=== PATIENT | female | born 1990 | race Caucasian/White ===

== ENCOUNTER → 2018-03-04 12:00 | Outpatient (CLI) | payer OTHER, MEDICAID, SELFPAY ==
--- NOTE | 2018-03-04 | DI.US.S_ITS ---
PROCEDURE: US OB >= 14 WEEKS FETUS INDICATIONS: 20 WEEK ANATOMICAL SURVEY OUTSIDE/PRIOR DATING DATA: Last menstrual period (LMP): 09/21/17. LMP-based estimated date of delivery (BRIJESH): 06/28/18. First dating scan (date and location): 03/04/itching. Estimated date of delivery (BRIJESH) from first dating scan: 07/04/18. TECHNIQUE: Real-time scanning was performed of the fetus, with image documentation and biometric measurements. Endovaginal scanning: No COMPARISON: None. FINDINGS: General: A single living intrauterine gestation is present. Presentation: Vertex. Placenta: Placental position is posterior fundal, without previa. Amniotic fluid index: 12.1 cm, normal range is 5-24 cm. heart rate: 145 beats per minute. Maternal cervical canal: 3.1 cm long. Normal lower limit is 2.5 cm. biometrics: Biparietal diameter: 22 weeks 3 days Head circumference: 22 weeks 3 days Abdominal circumference: 22 weeks 4 days Femur length: 22 weeks 4 days Estimated gestational age from initial scan: not applicable. Composite gestational age from present scan: 22 weeks 4 days Estimated weight and percentile: 510 g Measurement variability for biometric dating: +/- 7 days from 14 weeks to 15 weeks 6 days gestation, +/- 10 days from 16 weeks to 21 weeks 6 days gestation, +/- 2 weeks from 22 weeks to 27 weeks 6 days gestation, +/- 3 weeks for 28 weeks gestation or later. weight reference: 4500 g or EFW >90/95% is considered macrosomia or large for gestational age. EFW <10% is small for gestational age. EFW 5% or less is considered intra-uterine growth restriction. Anatomic survey: Neuro: Ventricles are non-dilated at less than 10 mm. Cisterna magna is normal at 3-11 mm. Cerebellum is normal in size and morphology. Nuchal skin fold: Normal at less than 6 mm between 14-21 weeks gestational age. Face: Nose and lips, facial profile are normal. Spine: No evidence for spina bifida. Heart: 4-chambered heart is present, with normal ventricular outflow tracts. Diaphragm: Diaphragm is intact. Stomach: Left-sided stomach is present. Kidneys: No hydronephrosis. Normal is less than 5 mm in 2nd trimester, less than 7 mm in 3rd trimester. Cord: 3-vessel cord has orthotopic insertion. Bladder: Normal in size. Extremities: All 4 extremities identified. IMPRESSION: 1. Single living IUP present with composite gestational age of 22 weeks 4 days. 2. Normal anatomy. Dictated by: Zachariah RAM Interpreted: Derek Arcos MD on 03/04/2018 at 13:39 Approved by: Derek Arcos M.D. on 03/04/2018 at 14:34
== END ==
PROVIDERS: Visit Provider Midwife
DX: Z36.89 Encounter for other specified antenatal screening (principal); Z3A.22 22 weeks gestation of pregnancy
CPT/HCPCS: 76811

== ENCOUNTER → 2018-07-08 10:41 | Outpatient (CLI) | payer OTHER, MEDICAID, SELFPAY ==
--- NOTE | 2018-07-08 | DI.US.S_ITS ---
PROCEDURE: US OB BIOPHYSICAL PROFILE INDICATIONS: INDU OUTSIDE/PRIOR DATING DATA: Last menstrual period (LMP): 09/21/2017. LMP-based estimated date of delivery (BRIJESH): 06/28/2018. First dating scan (date and location): 03/04/2018, [facility]. Estimated date of delivery (BRIJESH) from first dating scan: 07/04/2018. TECHNIQUE: Real-time scanning was performed of the fetus, with image documentation and biometric measurements. Biophysical profile was also obtained. Endovaginal scanning: No COMPARISON: [facility], OB >= 14 WEEKS FETUS, 03/04/2018, 12:38. None. FINDINGS: General: A single living intrauterine gestation is present. Presentation: Vertex. Placenta: Placental position is left frontal, without previa. Amniotic fluid index: 6.7 cm, normal range is 5-24 cm. heart rate: 127 beats per minute. Maternal cervical canal: Not visualized biometrics: Estimated gestational age from initial scan: 40 weeks 4 days. Composite gestational age from present scan: n.a. Estimated weight and percentile: n.a. Measurement variability for biometric dating: +/- 7 days from 14 weeks to 15 weeks 6 days gestation, +/- 10 days from 16 weeks to 21 weeks 6 days gestation, +/- 2 weeks from 22 weeks to 27 weeks 6 days gestation, +/- 3 weeks for 28 weeks gestation or later. weight reference: 4500 g or EFW >90/95% is considered macrosomia or large for gestational age. EFW <10% is small for gestational age. EFW 5% or less is considered intra-uterine growth restriction. Biophysical profile: Tone: 2 points. Movement: 2 points. Respiration: 2 points. Largest pocket of fluid: 2 points. IMPRESSION: 1. A single living intrauterine gestation with an estimated gestational age of 40 weeks 4 days based on the earlier ultrasound. 2. Normal biophysical profile (8 out of 8). 3. INDU 6.7 cm. Dictated by: Hafsa Bellamy M.D. on 07/08/2018 at 15:11 Approved by: Hafsa Bellamy M.D. on 07/08/2018 at 15:42
== END ==
PROVIDERS: PCP Midwife; Visit Provider Midwife
DX: Z03.71 Encounter for suspected problem with amniotic cavity and membrane ruled out (principal); Z3A.40 40 weeks gestation of pregnancy
CPT/HCPCS: 76819

== ENCOUNTER 2018-07-13 05:47 | Inpatient (IN) | payer OTHER, MEDICAID, SELFPAY ==
[2018-07-13] MEDS: LACTATED RINGERS 1,000 ML 100 ML IV ×2 (06:35→12:33)
[2018-07-13] MEDS: PENICILLIN G POTASSIUM 5,000,000 UNIT in DEXTROSE 5% IN WATER 250 ML IV (06:50)
[2018-07-13 07:06] LABS: Add Manual Diff / Slide Review NO; Basophils Absolute Auto 0 /uL (0-100); Basophils Percent Auto 0.1 % (0-2); Eosinophils Absolute Auto 0 /uL (0-450); Eosinophils Percent Auto 0.3 % (2-4); Hematocrit 35.8 % (36-46); Hemoglobin 12.4 g/dL (12.0-16.0); Lymphocytes Absolute Auto 1500 /uL (1100-4500); Mean Corpuscular HGB Conc 34.5 % (30-36); Mean Corpuscular Hemoglobin 30.2 PG (26-34); Mean Corpuscular Volume 87.4 fL (80-100); Monocytes Absolute Auto 600 /uL (0-900); Monocytes Percent Auto 4.5 % (3-14); Neutrophils Absolute Auto 11500 /uL (1500-7000); Neutrophils Percent Auto 84.1 % (50-75); Platelet Count 177 X10^3/uL (150-400); Red Cell Distribution Width 14.3 % (11.6-14.8); White Blood Cell Count 13.7 X10^3/uL (4.5-11.0)
[2018-07-13] MEDS: fentaNYL 100 MCG/2 ML INJ 50 MCG IV ×2 (08:10→09:43)
[2018-07-13 08:58] VITALS: BP 132/77
[2018-07-13] MEDS: PENICILLIN G POTASSIUM 3,000,000 UNIT/50 ML FROZ.PIGGY 100 UNIT IV ×2 (11:00→15:06)
[2018-07-13] MEDS: OXYTOCIN PREMIX 30 UNIT/500 ML PLAST..BAG IV (15:41)
[2018-07-14] MEDS: IBUPROFEN 600 MG TABLET PO ×3 (03:10→16:43)
[2018-07-14 06:29] LABS: Hematocrit 31.6 % (36-46); Hemoglobin 11.1 g/dL (12.0-16.0)
[2018-07-14] MEDS: TET,DIPH,PERTUSS(ACELL),VAC/PF 0.5 ML SYRINGE IM (09:57)
[2018-07-14 15:26] VITALS: BP 110/63; PULSE 80; RESP 16; TEMP 36.6
[2018-07-14 15:28] VITALS: BP 110/63; PULSE 80; RESP 16; TEMP 36.6
--- NOTE | 2018-07-14 18:39 | PM.OBHP.1 ---
OB HPI Date/Time Date of admission: 07/13/18 Date Patient Seen: 07/13/18 Time Patient Seen: 07:45 History of Present Condition Chief complaint: labor & delivery : 4 Para: 1 Estimated Date of Delivery: 07/04/18 Estimated Gestational Age (weeks): 41+2 Narrative: Terri Welch is a 28 year old female 4 para 1 at 41-,2/7 weeks gestation who was planning a home . She had a prolonged early stage of labor and requested transfer to the hospital. No leakage of fluid. Good movement. Contractions approximately 5 min apart. Indications Indication for induction OB: post dates Other reason(s) for admission: Prolonged early stage of labor Contractions since 1800 yesterday without cervical change. History of Present care: good care, initiated at week # (13) and number of visits (12) Dating criteria: LMP confirmed by 2nd trimester US Ultrasounds: normal mid trimester US Obstetrical complications: none Medical complications: none Preadmission Labs Blood type: B (+) positive -: Antibody screen: negative, GBS status: positive and RPR/VDLR: negative -: Chlamydia screen: not detected and Gonorrhea screen: not detected -: Rubella: immune HCT: 35.5 1 hr GTT: 74 Evaluation Evaluation Baseline heart rate: 125 Variability: Moderate (11-25) monitor accelerations: Present monitor decelerations: Absent Contraction Frequency (minutes): 3 Uterine Contraction Intensity: Moderate Category of Tracing: I Cervical dilation (cm): 2 Cervical effacement (%): 80 station: -1 Laboratory results: Laboratory Tests 07/13/18 07/13/18 07/14/18 06:35 06:35 06:17 WBC 13.7 H RBC 4.10 Hgb 12.4 11.1 L Hct 35.8 L 31.6 L MCV 87.4 MCH 30.2 MCHC 34.5 RDW 14.3 Plt Count 177 Neut % (Auto) 84.1 H Lymph % (Auto) 11.0 L [place] % (Auto) 4.5 Eos % (Auto) 0.3 L Baso % (Auto) 0.1 Neut # (Auto) 46203 H Lymph # (Auto) 1500 [place] # (Auto) 600 Eos # (Auto) 0 Baso # (Auto) 0 Blood Type B Positive Antibody Screen Negative PFSH Social History Smoking Status: Never smoker Social History Smoking Status: Never smoker Meds Home Medications Medication Instructions Recorded Confirmed Type CA/FE/FOLIC ACID/VIT A/VIT B 1 tab PO Q DAY #0 07/14/12 07/14/18 History (# VITAMIN) [CALAMAG] 1 tab OR Q DAY #0 07/14/12 07/14/18 History cholecalciferol (vitamin D3) 2,000 2,000 unit PO DAILY 03/22/18 07/14/18 History unit/drop oral drops elderberry fruit 200 mg capsule 200 mg PO DAILY cap 03/22/18 07/14/18 History garlic 1,000 mg capsule 1,000 mg PO QPC 03/22/18 07/14/18 History 1 tab PO DAILY 03/22/18 07/14/18 History vitamin,calcium,sdacocax-vory-ylhkm acid tablet zinc 50 mg tablet 50 mg PO DAILY 03/22/18 07/14/18 History Allergies Allergy/AdvReac Type Severity Reaction Status Date / Time No Known Drug Allergies Allergy Unverified 03/22/18 11:42 Exam Vital Signs (past 8 hours): - 07/14/18 15:26 07/14/18 15:28 Temperature 97.9 F 97.9 F Pulse Rate 80 80 Respiratory Rate 16 16 Blood Pressure 110/63 110/63 Narrative Exam Narrative: Generally: Patient lying on right side in moderate distress secondary to contractions Lungs: Clear to auscultation bilaterally Cardiovascular: Regular rate and rhythm Fundal height: 39 cm Estimated weight: 7 lbs Extremities: Negative Homans, no edema Objective Labs Result Diagrams: 07/14/18 06:17 Labs: Laboratory Results - last 24 hr 07/14/18 06:17 Hgb 11.1 L Hct 31.6 L
--- NOTE | 2018-07-14 18:57 | PM.OBPRVD ---
Delivery date: 07/13/18 Intrapartal events: Prolonged Latent Phase Cervical ripening method: none Induction method: none Delivery augmentation: rupture of membranes and pitocin Delivery monitor: external FHT and external uterine Route of delivery: Episiotomy description: None L&D Laceration Description: None Estimated blood loss (mL): 200 Anesthesia type: Epidural Complications: None Narrative: Patient complete and pushed for 29 min. At 5:39 p.m., a live male infant delivered spontaneously over an intact perineum. No nuchal cord. The remainder of the body delivered without difficulty and was placed on mom's abdomen. The cord was double clamped and cut after it stopped pulsing. Cord bloods were obtained. The placenta delivered intact with a 3 vessel cord at 5:43 p.m.. Pitocin was given in the IV fluids. The fundus was massaged firm. No lacerations noted. Apgars 8 at 1 min and 9 at 5 min. Epidural analgesia. . Weight 7 lb 0.74 oz. Mom and infant stable to recovery. Plan for aftercare: To routine care
--- NOTE | 2018-07-14 19:00 | PM.OBDS.1 ---
Discharge Providers Date of admission: 07/13/18 05:47 Discharge Date: 07/14/18 Primary care physician: Shaina Otero LM Consults: 07/13/18 18:11 Consult to Dairy Nutrition Consultant Routine Comment: Discharge provider: Ghazala Erazo MD Summary Date Patient Seen: 07/14/18 Time Patient Seen: 13:40 Procedures: Pitocin augmentation of labor Artificial rupture of membranes Epidural analgesia Spontaneous vaginal delivery Group B strep prophylaxis Hospital Course: Patient is a 28-year-old 4 para 2 who presented on 07/13/2018 for pain management for a prolonged latent phase of labor. She received an epidural for pain management. Artificial rupture of membranes was performed at 1:09 p.m.. She progressed to complete dilation at 5:10 p.m.. She had a spontaneous vaginal delivery over an intact perineum at 5:39 p.m.. Placenta delivered at 5:43 p.m. without complication. No lacerations. Her course was unremarkable and she is discharged home on day # 1. Peripartum Data Infant Delivery Method: Natural Vaginal Laceration description: None Episiotomy description: None Procedures: Pitocin augmentation of labor Artificial rupture of membranes Epidural analgesia Spontaneous vaginal delivery Group B strep prophylaxis complications: none Discharge Diagnosis (1) 41 weeks gestation of : Status: Acute (2) Prolonged labor: Status: Acute (3) Group beta Strep positive: Status: Acute Status at Discharge Cognitive/behavioral status at discharge: oriented Functional status at discharge: independent ambulation Overall status at discharge: patient is progressing back to baseline Time Spent with Patient Total time spent providing and/or coordinating discharge services: Less than 30 minutes Objective Labs Result Diagrams: 07/14/18 06:17 Labs: Laboratory Results - last 24 hr 07/14/18 06:17 Hgb 11.1 L Hct 31.6 L Exam Vital Signs (past 8 hours): - 07/14/18 15:26 07/14/18 15:28 Temperature 97.9 F 97.9 F Pulse Rate 80 80 Respiratory Rate 16 16 Blood Pressure 110/63 110/63 Discharge Plan Discharge Plan Patient Disposition: Home Discharge comment: Call with fever, chills or bleeding vaginally more than a pad in an hour Discharge Med Rec/Prescriptions Prescriptions: Continued garlic 1,000 mg capsule 1,000 mg PO QPC RF: 0 zinc 50 mg tablet 50 mg PO DAILY RF: 0 prenat.vits,ronald,vep-zbhl-gfpdc tablet 1 tab PO DAILY RF: 0 elderberry fruit 200 mg capsule 200 mg PO DAILY RF: 0 cholecalciferol (vitamin D3) 2,000 unit/drop drops 2,000 unit PO DAILY RF: 0 [CALAMAG] 1 tab OR Q DAY Qty: 0 RF: 0 CA/FE/FOLIC ACID/VIT A/VIT B (# VITAMIN) 1 tab PO Q DAY Qty: 0 RF: 0 Discontinued pyridoxine (vitamin B6) 50 mg tablet 50 mg PO DAILY RF: 0 Follow up/Referrals: Shaina Otero LM [Primary Care Provider] - (Call and make appointment for followup with care [facility].) Provider Discharge Instructions Diet: Diet as Tolerated Activity: No intercourse Skin/Wound/Dressing Care Report to your healthcare provider any signs of infection, such as:: chills, fever, increased pain, unusual drainage and unusual redness Visit Report/Discharge Packet Instructions: DI for Labor and Delivery, Vaginal Stand Alone Forms: Discharge: Care Visit Report Forms: Stroke Signs & Symptoms Discharge Data Primary Care Provider: Shaina Otero Attending Provider: Ghazala Erazo Admit Date/Time: 07/13/18 05:47
== END 2018-07-14 19:15 | disposition home or self-care (01) | DRG 560 ==
PROVIDERS: Admitting Provider Obstetrics & Gynecology; PCP Midwife; Visit Provider Obstetrics & Gynecology
DX: O48.0 Post-term pregnancy (principal); O63.0 Prolonged first stage (of labor); Z3A.41 41 weeks gestation of pregnancy; Z37.0 Single live birth; O99.824 Streptococcus B carrier state complicating childbirth
CPT/HCPCS: 01967; 36415; 59050; 59409; 85014; 85018; 85025; 86850; 86900; 86901; 99221; 99238; 90715; G0379; J2540; J2590; J3010

== ENCOUNTER → 2023-02-19 09:46 | Outpatient (CLI) | payer OTHER, MEDICAID, SELFPAY ==
--- NOTE | 2023-02-19 09:50 | DI.RAD.S_ITS ---
PROCEDURE: XR FOOT RT MIN 3V INDICATIONS: foot pain TECHNIQUE: 3 views of the foot were acquired. COMPARISON: None. FINDINGS: Bones: No fractures or dislocations. No suspicious bony lesions. Soft tissues: No tibiotalar joint effusion. Achilles tendon appears normal. IMPRESSION: Unremarkable right foot radiographs Approved by: Erick Kruse M.D. on 02/19/2023 at 19:14
== END ==
PROVIDERS: PCP Family Medicine; Referring Provider Family Medicine; Visit Provider Family Medicine
DX: M79.671 Pain in right foot (principal); G89.29 Other chronic pain
CPT/HCPCS: 73630

== ENCOUNTER → 2023-03-23 06:57 | Outpatient (CLI) | payer OTHER, MEDICAID, SELFPAY ==
[2023-03-23 07:55] LABS: Add Manual Diff / Slide Review NO; Basophils Absolute Auto 100 /uL (0-100); Eosinophils Absolute Auto 100 /uL (0-450); Hemoglobin 14.2 g/dL (12.0-16.0); Lymphocytes Absolute Auto 2100 /uL (1100-4500); Lymphocytes Percent Auto 29.3 % (25-40); Mean Corpuscular HGB Conc 35.5 % (30-36); Mean Corpuscular Hemoglobin 30.5 PG (26-34); Monocytes Absolute Auto 400 /uL (0-900); Monocytes Percent Auto 5.4 % (3-14); Neutrophils Absolute Auto 4400 /uL (1500-7000); Neutrophils Percent Auto 62.3 % (50-75); Platelet Count 234 X10^3/uL (150-400); Red Blood Cell Count 4.65 X10^6/uL (4.0-5.2); Red Cell Distribution Width 12.9 % (11.6-14.8); White Blood Cell Count 7.1 X10^3/uL (4.5-11.0)
[2023-03-23 08:18] LABS: Hemoglobin A1C% w Est Avg Glu 4.9 % (4.0-6.0)
[2023-03-23 08:31] LABS: Alanine Aminotransferase 18 IU/L (<35); Albumin 4.3 g/dL (3.5-5.0); Albumin Globulin Ratio 1.5 (1.0-2.8); Alkaline Phosphatase 60 U/L (38-126); Aspartate Aminotransferase 22 IU/L (14-36); BUN Creatinine Ratio 19.1 (6-22); Bilirubin Total 0.6 mg/dL (0.2-1.3); Blood Urea Nitrogen 13 mg/dL (7-17); Calcium 9.8 mg/dL (8.4-10.2); Carbon Dioxide 25 mmol/L (22-32); Chloride 105 mmol/L (98-107); Cholesterol 197 mg/dL (140-199); Estimated Glomerular Filt Rate > 60 mL/min (>60); Globulin 2.9 g/dL (1.7-4.1); Glucose 87 mg/dL (70-100); HDL Cholesterol 41 mg/dL (40-60); HEMOLYSIS < 15 (0-50); LDL Cholesterol Calculated 133 mg/dL (<100); Potassium 4.2 mmol/L (3.4-5.1); Sodium 137 mmol/L (137-145); Total Protein 7.2 g/dL (6.3-8.2); Triglycerides 113 mg/dL (35-150)
[2023-03-23 08:55] LABS: TSH w/ Reflex to FT4 2.68 uIU/mL (0.47-4.68)
== END ==
PROVIDERS: PCP Family Medicine; Referring Provider Family Medicine; Visit Provider Family Medicine
DX: Z00.00 Encounter for general adult medical examination without abnormal findings (principal); R53.83 Other fatigue; Z13.1 Encounter for screening for diabetes mellitus; Z87.891 Personal history of nicotine dependence
CPT/HCPCS: 36415; 80053; 80061; 83036; 84443; 85025

== ENCOUNTER → 2024-08-27 10:24 | Outpatient (CLI) | payer OTHER, SELFPAY ==
[2024-08-27 12:08] LABS: Hematocrit 40.1 % (36-46); Hemoglobin 14.1 g/dL (12.0-16.0); Mean Corpuscular HGB Conc 35.1 % (30-36); Mean Corpuscular Hemoglobin 30.9 PG (26-34); Mean Corpuscular Volume 88.2 fL (80-100); Platelet Count 280 X10^3/uL (150-400); Red Blood Cell Count 4.54 X10^6/uL (4.0-5.2); White Blood Cell Count 5.8 X10^3/uL (4.5-11.0)
[2024-08-27 12:24] LABS: Alanine Aminotransferase 24 IU/L (<35); Albumin 4.6 g/dL (3.5-5.0); Albumin Globulin Ratio 1.9 (1.0-2.8); Alkaline Phosphatase 55 U/L (38-126); Aspartate Aminotransferase 26 IU/L (14-36); BUN Creatinine Ratio 19.7 (6-22); Bilirubin Total 0.6 mg/dL (0.2-1.3); Blood Urea Nitrogen 14 mg/dL (7-17); Calcium 9.7 mg/dL (8.4-10.2); Carbon Dioxide 27 mmol/L (22-32); Chloride 101 mmol/L (98-107); Cholesterol 246 mg/dL (140-199); Estimated Glomerular Filt Rate > 60 mL/min (>60); Globulin 2.4 g/dL (1.7-4.1); Glucose 84 mg/dL (70-99); HDL Cholesterol 50 mg/dL (40-60); HEMOLYSIS < 15 (0-50); LDL Cholesterol Calculated 173 mg/dL (<100); Potassium 4.3 mmol/L (3.4-5.1); Sodium 138 mmol/L (137-145); Triglycerides 115 mg/dL (35-150)
[2024-08-27 14:09] LABS: Urine N gonorrhoeae NOT DETECTED
[2024-08-27 14:11] LABS: Urine Chlamydia NOT DETECTED
[2024-08-27 14:49] LABS: Hepatitis B Surface Antigen NEGATIVE s/c (NEGATIVE)
[2024-08-27 15:06] LABS: HIV 1 & 2 Ab/Ag 4th Gen Combo NEGATIVE (NEGATIVE); Hep C Virus Ab w/Reflex Quant NEGATIVE s/c (NEGATIVE)
[2024-08-28 05:08] LABS: HSV 1 IGG AB Reactive (Non Reactive); HSV 2 IGG AB Non Reactive (Non Reactive)
[2024-08-28 06:10] LABS: RPR Screen Non Reactive (Non Reactive)
== END ==
LOC: LAB 10:25
PROVIDERS: PCP Family Medicine; Referring Provider Family Medicine; Visit Provider Family Medicine
DX: Z11.3 Encounter for screening for infections with a predominantly sexual mode of transmission (principal); Z00.00 Encounter for general adult medical examination without abnormal findings; E78.00 Pure hypercholesterolemia, unspecified
CPT/HCPCS: 36415; 80053; 80061; 85027; 86592; 86695; 86696; 86803; 87340; 87389; 87491; 87591